=== PATIENT | female | born 1965 | race Caucasian/White ===

== ENCOUNTER 2016-08-10 16:44 | Emergency (ER) | payer OTHER ==
[~2016-08-10] VITALS: Ht 154.9 cm; Wt 48.5 kg
[~2016-08-10 16:44] MED LIST: AMITRIPTYLINE 225 MG PO; AZITHROMYCIN500 MG PO; CITALOPRAM HYDR40 MG PO; FOLIC ACID1 MG PO; GABAPENTIN300 M1 PO; LISINOPRIL20 MG PO; METHOTREXATE 22.5 MG PO; PREDNISONE 20MG20 MG PO; TOLMETIN SODIU400 MG PO
--- NOTE | 2016-08-10 17:09 | Urgent Treatment Center Report ---
History of Present Issue Visit Reason Pt arrived:Walked Presenting Problem:PT C/O DIFFICULTY SWALLOWING AFTER TAKING A DRINK OF SOMETHING THAT HAD A BEE IN IT AND IT STUNG HER IN THE THROAT Location if Accident:Home Onset of symptoms date/time:/ or onset unknown for:MEDICAL HX UNKNOWN Have you (or family members/close friends) recently traveled outside the [place]? N If Yes, where/when: Have you had exposure to infectious disease within the past month? TB? Other? Specify: Patient states that she was taking a drink through a straw and a bee was in there and it stung her inside her mouth and she spit the bee out, Now she is having some swelling inside her mouth and throat area ALLERGIES Coded Allergies: codeine (I-HIVES 01/08/16) hydrocodone (I-HIVES 01/08/16) Home Medications Active Scripts Prednisone (Prednisone 20MG) 20 MG PO BID #10 TAB Prov: 11/26/13 Reported Medications Amitriptyline Hcl (Amitriptyline) 25 MG PO QHS #30 Folic Acid 1 MG PO DAILY #30 Methotrexate 2.5 MG PO WEEKLY #24 Citalopram Hydrobromide (Citalopram HBr) 40 MG PO QHS #30 Lisinopril 20 MG PO DAILY #30 Tolmetin Sodium 400 MG PO TID #60 Gabapentin 600 MG PO TID #180 History Medical History General CAD? No Angina: No [place]: No Hypertension? Yes Hyperlipidemia? No CHF? No DVT? No PE? No COPD? No Asthma? No Anemia? No GERD? No Gastric ulcers? No GI Bleed? No Hernia? No Thyroid Problems? No Hypothyroidism? No CVA? No Seizures? No Diabetes? No Renal Insuffiency? No UTI? No Stones? No BPH? No GB Disease: No Nephritic Syndrome? No Asplenia? No Hepatitis? No Sickle Cell Disease? No Arthritis? Yes Migraines? No Cataracts? No Glaucoma? No MRSA? No HIV? No TB? No Anxiety? No Depression? No Cancer? No More? Yes Additional hx: SLEEP APNEA FIBROMYALGIA Immunization HX DT/Tetanus UNKNOWN Surgical Hx Previous Surgery?Y ENDOMETRIAL ABLASION D & C Social History Smoking Hx Smoker: Current Every Day Smoker Tobacco: Yes Type Cigarettes Packs/day < 1 Pack Alcohol Alcohol: No Review of Systems All Other Systems Reviewed and Negative ENT throat pain, throat swelling. Respiratory denies no symptoms reported Physical Exam Vital Signs Vital Signs Date Time Temp Pulse Resp B/P Pulse O2 O2 Flow FiO2 Ox Delivery Rate 08/10 1655 98.4 104 16 148/87 99 General Appearance Patient slightly anxious, able to speak and talk, denies any SOA at this time Ear, Nose, Throat Throat red, mildly swollen, Respiratory Status Yes: trachea midline, chest symmetrical, non tender chest. No: respiratory distress. Cardiovascular normal exam, no peripheral edema, no gallop Neurologic alert, normal exam Medical Decision Making LABS/Meds/Orders Pt receiving controlled substance in ED? No Results/Orders Current Medication Orders Sig/[place]ley Start time Last Medication Dose Route Stop Time Status Admin Diphenhydramine HCl 50 MG ONCE ONE 08/10 1715 DC 08/10 IM 08/10 171 1706 Methylprednisolone 125 MG ONCE ONE 08/10 1715 DC 08/10 Sodium Succinate IM 08/10 1716 1706 Methylprednisolone 0 .STK-MED ONE 08/10 1651 DC Sodium Succinate .ROUTE Diphenhydramine HCl 0 .STK-MED ONE 08/10 1650 DC .ROUTE Progress [facility] Progress Notes Date 08/10/16 Time 1759 Comment Patient swelling inside mouth now completely gone patient states that she feels much better and no longer having any feelings of swelling or pain Departure Departure Time of Disposition 1800 Disposition DC Home or Self Care(routine) Clinical Impression Primary Impression: Bee sting reaction Qualifiers: Encounter type: initial encounter Injury intent: accidental or unintentional Qualified Code: T63.441A - Toxic effect of venom of bees, accidental (unintentional), initial encounter Condition STABLE Referrals Wanda LEIVA,Douglas Givens (Family) Patient Instructions Insect Bites and Stings (Alternative Therapy) Additional Instructions Drink plenty of fluids Benadryl for itching or swelling as sign of reaction to sting Follow up family doctor Discharge Counseling Counseled pt/family regarding diagnosis, medications/RX, home care Prescriptions Current Visit Scripts Diphenhydramine Hcl (Diphenhydramine 50MG CAP) 50 MG PO BID PRN bee sting #16 CAP at 1804
[2016-08-10] MEDS ORDERED: DIPHENHYDRAMINE50 MG PO (18:04)
[2016-08-10 18:17] VITALS: BP 148/87
== END 2016-08-10 18:17 | disposition home or self-care (01) ==
LOC: UTC 16:44
DX: T63.441A Toxic effect of venom of bees, accidental (unintentional), initial encounter (principal); I10 Essential (primary) hypertension; Z72.0 Tobacco use

== ENCOUNTER → 2017-06-01 | Outpatient (CLI) | payer OTHER ==
[~2017-06-01] MED LIST changes: +DIPHENHYDRAMINE50 MG PO
--- NOTE | 2017-06-01 11:05 | RADIOLOGY REPORT PS360 ---
HAND-RT 3 VIEWS HISTORY: RT HAND SWELLING ORDERING PHYSICIAN: Renita Fontana APRN PATIENT AGE: 51 years COMPARISON: None FINDINGS: No fracture or dislocation. No lytic or blastic change. There is normal mineralization. The joint spaces are well-preserved. No significant degenerative/arthritic changes. No erosive changes evident. IMPRESSION: Negative, no acute finding
== END ==
LOC: RAD 09:03
DX: M79.89 Other specified soft tissue disorders (principal)